=== PATIENT | female | born 1935 | race Caucasian/White ===

== ENCOUNTER → 2016-10-03 | Day surgery (SDC) | payer OTHER, MEDICARE ==
[~2016-10-03] MED LIST: ASPIRIN EC 325 MG TAB PO ONE; ATROPINE SULFATE 1 MG/10 ML SYR ONE; DIAZEPAM 5 MG TAB ONE; DIAZEPAM 5 MG TAB PO ONE; FAMOTIDINE 20 MG TAB PO ONE; FAMOTIDINE 20 MG/NACL 50 ML IV ONE; FAMOTIDINE 20 MG/NACL/50 ML BAG IV ONE; HEPARIN 10,000 UNIT/10 ML MDV ONE; IOPAMIDOL (ISOVUE 370) 100 ML BTL IV ONE; LIDOCAINE 1% 30 ML SDV ONE; MIDAZOLAM 2 MG/2 ML VIAL ONE; NS 1,000 ML IV ONE; VERAPAMIL 5 MG/2 ML VIAL ONE; diphenhydrAMINE 25 MG CAP PO ONE; fentaNYL 100 MCG/2 ML INJ ONE; methylPREDNISolone SOD SUCC 125 MG/2 ML VIAL IVP ONE; methylPREDNISolone SOD SUCC 125 MG/2 ML VIAL ONE
--- NOTE | 2016-10-03 11:41 | CPEKG ---
Heart Rate: 73 RR Interval: 822 P-R Interval: 200 QRSD Interval: 78 QT Interval: 428 QTC Interval: 472 QRS [place]: 30 T Wave [place]: 61 EKG Severity - ABNORMAL ECG - EKG Impression: ATRIAL-PACED RHYTHM Electronically Signed By: Ceasar Finley 03-Oct-2016 12:17:38
[2016-10-03 12:06] LABS: % IMMATURE GRANULYOCYTES 0.3 % (0.0-1.1); ABSOLUTE IMMATURE GRANULOCYTES 0.03 10^3/uL (0.00-0.10); ADD DIFF? NO; ADD MORPH? NO; ADD SCAN? NO; ATYPICAL LYMPHOCYTE FLAG 10 (0-99); FRAGMENT RBC FLAG 0 (0-99); HEMATOCRIT 40.8 % (38.0-47.0); HEMOGLOBIN 14.4 g/dL (12.6-16.3); LEFT SHIFT FLG 0 (0-99); LIPEMIA HEMOLYSIS FLAG 90 (0-99); MEAN CELL HEMOGLOBIN 31.7 pg (27.9-34.1); MEAN CELL HEMOGLOBIN CONCENTR. 35.3 g/dL (32.4-36.7); MEAN CELL VOLUME 89.9 fL (81.5-99.8); MEAN PLATELET VOLUME 9.4 fL (8.7-11.7); PLATELET CLUMPS FLAG 10 (0-99); PLATELET COUNT 265 10^3/uL (150-400); RED BLOOD CELL COUNT 4.54 10^6/uL (4.18-5.33); RED CELL DISTRIBUTION WIDTH 13.8 % (11.5-15.2)
[2016-10-03 12:16] LABS: PROTIME(PATIENT) 13.1 SEC (12.0-15.0)
[2016-10-03 12:55] LABS: ANION GAP 12 mEq/L (8-16); CALCIUM 9.6 mg/dL (8.5-10.4); CARBON DIOXIDE 23 mEq/l (22-31); CHLORIDE 108 mEq/L (97-110); CHOLESTEROL 168 mg/dL (140-220); CHOLESTEROL/HDL RATIO 2.51 RATIO (1.00-4.44); CREATININE 0.8 mg/dL (0.6-1.0); GLOMERULAR FILTRATION RATE > 60; GLUCOSE 91 mg/dL (70-100); HIGH DENSITY LIPOPROTEIN 67 mg/dL (40-85); LDL/HDL RATIO 1.18 RATIO (1.00-3.22); LOW DENSITY LIPOPROTEIN 79 mg/dL (80-100); NON-HIGH DENSITY LIPOPROTEIN 101 mg/dL (90-129); POTASSIUM 4.4 mEq/L (3.5-5.2); SODIUM 143 mEq/L (134-144); TRIGLYCERIDE 113 mg/dL (35-135); VERY LOW DENSITY LIPOPROTEINS 22 mg/dL (8-25)
--- NOTE | 2016-10-03 14:54 | CPIP ---
[f rep st] INVASIVE CARDIAC PROCEDURE DATE OF PROCEDURE: 10/03/2016 PROCEDURE: 1. Coronary angiography. 2. Left ventriculography. INDICATION: 1. Exertional chest pain concerning for angina. 2. Normal nuclear stress test. ACCESS: The patient was prepped and draped in the sterile fashion. 1% lidocaine was used to anesth etize the right inguinal region. A 6-Russian introducer sheath was placed selectively into the right common femoral artery via modified Seldinger technique. CORONARY ANGIOGRAPHY: A 6-Russian JL4 was advanced to the left main coronary artery and images obtai [place]. The left main coronary artery bifurcated into an LAD and circumflex coronary arteries. The le ft main coronary artery appeared normal. The left anterior descending coronary artery gave rise to 1 prominent diagonal branch. The left anterior descending coronary artery had a segmental 40% steno sis in the midvessel. The diagonal branch was free of any significant disease. Circumflex coronary artery was a large vessel and was nondominant. Circumflex coronary artery appeared normal. A 6-Fr ench JR4 was advanced to the right coronary artery, and images obtained. The right coronary artery was dominant. The right coronary artery appeared normal. LEFT VENTRICULOGRAPHY: A 6-Russian pigtail catheter was advanced in the left ventricle and images ob tained. Left ventricle was normal in size and had normal systolic function. The estimated ejection fraction was 65%. The left ventricular end-diastolic pressure was 16 mmHg. COMPLICATIONS: None. CONCLUSIONS: 1. [id number] coronary artery disease without flow limitation. 2. Normal left ventricular size and systolic function. 3. Plan is for medical management. /[id number]/MODL
== END | disposition home or self-care (01) ==
LOC: FCATH 11:08
PROVIDERS: ATTEND Internal Medicine Cardiovascular Disease
PROC: 4A023N7 Measurement of Cardiac Sampling and Pressure, Left Heart, Percutaneous Approach (ICD-10-PCS; principal; 2016-10-03)
PROC: B2151ZZ Fluoroscopy of Left Heart using Low Osmolar Contrast (ICD-10-PCS; 2016-10-03)
PROC: B2111ZZ Fluoroscopy of Multiple Coronary Arteries using Low Osmolar Contrast (ICD-10-PCS; 2016-10-03)
DX: R07.9 Chest pain, unspecified (principal); I25.10 Atherosclerotic heart disease of native coronary artery without angina pectoris; E78.5 Hyperlipidemia, unspecified; E03.9 Hypothyroidism, unspecified; I10 Essential (primary) hypertension; G47.33 Obstructive sleep apnea (adult) (pediatric); M54.5 Low back pain; I49.5 Sick sinus syndrome; Z95.0 Presence of cardiac pacemaker; Z86.14 Personal history of Methicillin resistant Staphylococcus aureus infection
CPT/HCPCS: J0461; J1200; J1644; J2250; J3010; Q9967

== ENCOUNTER 2016-11-13 14:44 | Inpatient (IN) | payer OTHER, MEDICARE ==
[2016-11-13] MEDS ORDERED: NS 1,000 ML IV ONE (15:35)
[2016-11-13 15:39] LABS: % IMMATURE GRANULYOCYTES 0.5 % (0.0-1.1); ABSOLUTE IMMATURE GRANULOCYTES 0.11 10^3/uL (0.00-0.10); ADD DIFF? NO; ADD MORPH? NO; ADD SCAN? NO; ATYPICAL LYMPHOCYTE FLAG 0 (0-99); FRAGMENT RBC FLAG 0 (0-99); HEMATOCRIT 34.8 % (38.0-47.0); HEMOGLOBIN 12.2 g/dL (12.6-16.3); LEFT SHIFT FLG 0 (0-99); LIPEMIA HEMOLYSIS FLAG 90 (0-99); MEAN CELL HEMOGLOBIN 31.4 pg (27.9-34.1); MEAN CELL HEMOGLOBIN CONCENTR. 35.1 g/dL (32.4-36.7); MEAN CELL VOLUME 89.5 fL (81.5-99.8); MEAN PLATELET VOLUME 9.6 fL (8.7-11.7); PLATELET CLUMPS FLAG 10 (0-99); PLATELET COUNT 268 10^3/uL (150-400); RED BLOOD CELL COUNT 3.89 10^6/uL (4.18-5.33); RED CELL DISTRIBUTION WIDTH 13.9 % (11.5-15.2)
[2016-11-13] MEDS ORDERED: IOPAMIDOL (ISOVUE-300) 100 ML BTL IV ONE (15:55)
[2016-11-13 16:00] LABS: ALANINE AMINOTRANSFERASE 25 IU/L (9-52); ALBUMIN 3.4 g/dL (3.5-5.0); ALKALINE PHOSPHATASE 65 IU/L (38-126); ANION GAP 13 mEq/L (8-16); ASPARTATE AMINOTRANSFERASE 18 IU/L (14-46); BILIRUBIN,TOTAL 1.6 mg/dL (0.1-1.4); CALCIUM 8.9 mg/dL (8.5-10.4); CARBON DIOXIDE 21 mEq/l (22-31); CHLORIDE 104 mEq/L (97-110); CREATININE 0.7 mg/dL (0.6-1.0); GLOMERULAR FILTRATION RATE > 60; GLUCOSE 108 mg/dL (70-100); SODIUM 138 mEq/L (134-144)
[2016-11-13 16:29] LABS: COLOR YELLOW; LEUKOCYTE ESTERASE,URINE NEGATIVE (NEGATIVE); NITRITE,URINE NEGATIVE (NEGATIVE)
[2016-11-13 16:47] LABS: BACTERIA TRACE /hpf (NONE SEEN); MUCUS 1+ /lpf (NONE-1+); WBC,URINE NONE SEEN /hpf (0-3)
--- NOTE | 2016-11-13 17:22 | UCPHY ---
H & P Patient Type: Established Chief Complaint Nursing Narrative: Right lower abd pain since yesterday . Decreased appetite. Hurts in RLQ with walking and palpation. Last po solid 5pm . Instructed to remain NPO Time Seen by Provider: 11/13/16 15:20 HPI/ROS: This patient complains of abdominal pain. She reports that yesterday she [place] and while turning to the right she fell, striking her helmeted head and summer salting landing on her back. She reported mild headache but she was not days and had no LOC. However, within 0.5 hour so the fall she started developing some abdominal discomfort in the lower belly and had a few loose stools. She was able to ski the rest the way down the mountain. She developed mild bloating and discomfort that has increased today to now 7/10 pain in the right lower quadrant. The pain worsens with movement. No other exacerbating or alleviating factors. She has not had this pain before she describes ache at baseline sharper with movements. She has decreased appetite today but no nausea or vomiting. ROS: No fevers. No significant fatigue. HEENT: No facial injuries. Musculoskeletal: She denies any extremity injuries. No midline neck or back pain. Neuro: No confusion. No numbness tingling or focal weakness. Pulmonary: No shortness of breath cardiovascular: No heart palpitations or lightheadedness. GI: As per HPI. She has not noticed any dark tarry stools or bloody stools. : No hematuria. 10 point ROS is otherwise negative. Source: Patient Exam Limitations: No limitations - Personal History Current Tetanus Diphtheria and Acellular Pertussis (TDAP): Yes Tetanus Vaccine Date: 2010 - Medical/Surgical History PMH: Hypothyroid Hypercholesterolemia Pacemaker Knee replacement Hx Asthma: No Hx Chronic Respiratory Disease: No Hx Diabetes: No Hx Cardiac Disease: No Hx Renal Disease: No Hx Cirrhosis: No Hx Alcoholism: No Hx HIV/AIDS: No Hx Splenectomy or Spleen Trauma: No Other PMH: HTN, hypothyroid, pacemaker. Hysterectomy, knee replacement, MRSA - Family History Significant Family History: No pertinent family hx - Social History Smoking Status: Never smoked Alcohol Use: None Drug Use: None Additional Social History: She is accompanied by her - Physical Exam Exam: Vital signs are normal General Appearance: Alert, no distress. She appears younger than her stated age. Eyes: Pupils equal and round no pallor or injection. ENT, Mouth: Mucous membranes moist. Neck: No midline tenderness. Back: No midline tenderness. No CVA tenderness Respiratory: There are no retractions, lungs are clear to auscultation. Cardiovascular: Regular rate and rhythm. Gastrointestinal: Hypoactive bowel sounds, soft, moderate right lower quadrant tenderness with borderline rebound. Positive Rovsing's no upper belly tenderness. No organomegaly. Neurological: GCS 15. No sensory motor deficits. No pronator drift. Cerebellar exam is intact is noted by symmetric rapid hand movements bilaterally. Skin: Warm and dry, no rashes. Extremities are symmetrical, full range of motion. Psychiatric: Mood and affect are normal DIFFERENTIAL DIAGNOSIS: After history and physical exam differential diagnosis was considered for bowel injury, mesenteric injury, appendicitis: Incidental with fall, doubt solid organ injury, minor head injury Constitutional: Initial Vital Signs Temperature (C) 36.4 C 11/13/16 15:05 Heart Rate 73 11/13/16 15:05 Respiratory Rate 16 11/13/16 15:05 Blood Pressure 114/63 11/13/16 15:05 O2 Sat (%) 96 11/13/16 15:05 O2 Delivery Mode Room Air Allergies/Adverse Reactions: RODGER Inhibitors Allergy (Verified 11/13/16 15:18) amoxicillin [Amoxicillin] Allergy (Verified 11/13/16 15:18) iodine Allergy (Verified 11/13/16 15:18) Home Medications: Medication Instructions Recorded Levothyroxine [Synthroid 75 mcg 03/03/14 (*)] Simvastatin [Zocor 10 mg] 03/03/14 Benicar 06/03/16 CeleBREX 11/13/16 Medical Decision Making - Diagnostics Imaging: CT abdomen pelvis with IV contrast: Swelling circumferentially to the ascending colon per Dr. Terrazas with mild amount of free fluid kidneys appear normal no solid organ injury. ED Course/Re-evaluation: 1 L normal saline bolus Patient declined analgesics while here. Review of her labs reveals marked leukocytosis, mild anemia, microscopic hematuria Given initial results question bowel injury. Despite minor trauma-no clinical evidence to suggest significant head injury, neck or back injury or other concerning findings on exam. Ertapenem 1 g IV Upon receiving the CT reading placed patient on a monitor I counseled regarding the need for transfer. I spoke with Dr. Michael Gauthier-general surgeon/trauma surgeon on-call. We will transfer the patient to [facility] Emergency Department for further evaluation Spoke with Dr. Yao Randolph-emergency physician at [facility] accepts patient for transfer At the time of transfer the patient's vital signs remained stable and she continues to decline analgesics. - Data Points Laboratory Results: Laboratory Results 11/13/16 15:30 11/13/16 15:30 11/13/16 11/13/16 11/13/16 16:20 15:30 15:30 WBC 21.64 10^3/uL H 10^3/uL (3.80-9.50) RBC 3.89 10^6/uL L 10^6/uL (4.18-5.33) Hgb 12.2 g/dL L g/dL (12.6-16.3) Hct 34.8 % L % (38.0-47.0) MCV 89.5 fL fL (81.5-99.8) MCH 31.4 pg pg (27.9-34.1) MCHC 35.1 g/dL g/dL (32.4-36.7) RDW 13.9 % % (11.5-15.2) Plt Count 268 10^3/uL 10^3/uL (150-400) MPV 9.6 fL fL (8.7-11.7) Neut % (Auto) 81.4 % H % (39.3-74.2) Lymph % (Auto) 10.1 % L % (15.0-45.0) [place] % (Auto) 7.6 % % (4.5-13.0) Eos % (Auto) 0.2 % L % (0.6-7.6) Baso % (Auto) 0.2 % L % (0.3-1.7) Nucleat RBC Rel Count 0.0 % % (0.0-0.2) Absolute Neuts (auto) 17.62 10^3/uL H 10^3/uL (1.70-6.50) Absolute Lymphs (auto) 2.18 10^3/uL 10^3/uL (1.00-3.00) Absolute Monos (auto) 1.64 10^3/uL H 10^3/uL (0.30-0.80) Absolute Eos (auto) 0.05 10^3/uL 10^3/uL (0.03-0.40) Absolute Basos (auto) 0.04 10^3/uL 10^3/uL (0.02-0.10) Absolute Nucleated RBC 0.00 10^3/uL 10^3/uL (0-0.01) Immature Gran % 0.5 % % (0.0-1.1) Immature Gran # 0.11 10^3/uL H 10^3/uL (0.00-0.10) Sodium 138 mEq/L mEq/L (134-144) Potassium 4.0 mEq/L mEq/L (3.5-5.2) Chloride 104 mEq/L mEq/L (97-110) Carbon Dioxide 21 mEq/l L mEq/l (22-31) Anion Gap 13 mEq/L mEq/L (8-16) BUN 12 mg/dL mg/dL (7-23) Creatinine 0.7 mg/dL mg/dL (0.6-1.0) Estimated GFR > 60 Glucose 108 mg/dL H mg/dL (70-100) Calcium 8.9 mg/dL mg/dL (8.5-10.4) Total Bilirubin 1.6 mg/dL H mg/dL (0.1-1.4) AST 18 IU/L IU/L (14-46) ALT 25 IU/L IU/L (9-52) Alkaline Phosphatase 65 IU/L IU/L (38-126) Total Protein 6.0 g/dL L g/dL (6.3-8.2) Albumin 3.4 g/dL L g/dL (3.5-5.0) Urine Color YELLOW Urine Appearance CLEAR Urine pH 7.0 (5.0-7.5) Ur Specific [place] 1.010 (1.002-1.030) Urine Protein NEGATIVE (NEGATIVE) Urine Ketones NEGATIVE (NEGATIVE) Urine Blood 1+ H (NEGATIVE) Urine Nitrate NEGATIVE (NEGATIVE) Urine Bilirubin NEGATIVE (NEGATIVE) Urine Urobilinogen 0.2 EU EU (0.2-1.0) Ur Leukocyte Esterase NEGATIVE (NEGATIVE) Urine RBC 3-5 /hpf H /hpf (0-3) Urine WBC NONE SEEN /hpf /hpf (0-3) Ur Epithelial Cells 1+ /lpf /lpf (NONE-1+) Urine Bacteria TRACE /hpf H /hpf (NONE SEEN) Hyaline Casts 1-3 /lpf H /lpf (0-1) Urine Mucus 1+ /lpf /lpf (NONE-1+) Urine Glucose NEGATIVE (NEGATIVE) Medications Given: Discontinued Medications Sodium Chloride (Ns) 1,000 mls @ 0 mls/hr IV ONCE ONE PRN Reason: Wide Open Stop: 11/13/16 15:36 Last Admin: 11/13/16 15:41 Dose: 1,000 mls Departure - Departure Disposition: [facility] ER Clinical Impression: History of blunt trauma to abdomen Condition: Fair Referrals: Gunjan Cruz MD [Primary Care Provider] - As per Instructions - PQRS PQRS Measurement: 134: Depression screening and followup, PRIME MD-PHQ2 (12 years and older) Over the last 2 weeks, how often have you been bothered by any of the following problems? 1. Feeling down, depressed, or hopeless? 2. Little interest or pleasure in doing things? Patient answered no to both 1 and 2 130: Documentation of medications. Reviewed all patient medications, doses, route and frequency. 226: Do you smoke? [No.] 47: 65 and older: Advanced care planning. Patient designates surrogate decision maker as spouse 51: 18 years old and older with diagnosis of COPD, spirometry performance. NA 52: 18 years old and older with COPD and symptoms of COPD or FEV1<60% predicted prescribed a B Agonist. NA
[2016-11-13] MEDS ORDERED: ERTAPENEM 1 GM in NS 100 ML IV ONE (17:28)
[2016-11-13] MEDS ORDERED: D5W NS 1,000 ML IV ONE (17:29)
[2016-11-13] MEDS ORDERED: NS 100 ML BAG IV ONE (17:43)
[2016-11-13 18:00] LABS: INR 1.01 (0.83-1.16)
[2016-11-13 18:01] LABS: APTT 31.3 SEC (23.0-38.0)
--- NOTE | 2016-11-13 18:49 | EDPHY ---
H & P Time Seen by Provider: 11/13/16 15:20 HPI/ROS: CHIEF COMPLAINT: Right lower abdominal pain HISTORY OF PRESENT ILLNESS: Patient was skiing yesterday at [employer] and took a significant fall. However she landed on her back and did not hit her abdomen. She got up from the fall and felt that she got the wind knocked out of her but she [place] and then went to the bathroom and had a significant bout of diarrhea. She subsequently had some abdominal bloating and feeling that she needed to have diarrhea again but did not ski anymore and left the hill. Today she had continued right lower abdominal pain and went at the urgent care where a CT scan showed a thickened right-sided: Within normal appendix. She received 1 g IV Invanz and was transferred here for surgical consultation. REVIEW OF SYSTEMS: Eye: no change in vision ENT: no sore throat Cardiac: no chest pain or syncope Pulmonary: no cough or SOB Abdomen: HPI, no diarrhea. Musculoskeletal: no back pain or neck pain Skin: no rash Neuro: no headache Constitutional: no fever : no urinary symptoms A comprehensive 10 point review of systems is otherwise negative aside from elements mentioned in the history of present illness. PAST MEDICAL HISTORY: Includes hypertension, hypothyroid, pacemaker, knee replacement. Social history: Added year, nonsmoker General Appearance: Alert and conversant, cooperative. Eyes: No scleral icterus. ENT, Mouth: Normal mucous membranes. Respiratory: Normal respiratory effort, breath sounds equal, lungs are clear to auscultation. Cardiovascular: Regular rate and rhythm. Gastrointestinal: Right lower quadrant tenderness. Neurological: Alert and oriented x3. Normally conversant. Face symmetric, normal movement and sensation in all extremities. Skin: Warm and dry, no rashes. Musculoskeletal: No spinal tenderness. Psychiatric: Not agitated. Emergency Department course/MDM: Although traumatic injury can' t be excluded, the patient does not have abdominal wall contusion or hemorrhage visible on her skin or externally. I think this sequence of events is also quite possible or likely to be infectious colitis. Discussed with Dr. Gauthier on the patient's arrival. However the patient tells me she has Dr. Gunjan Cruz from [facility] as her primary care provider. Discussed with Dr. Walsh who requests that Dr. Gauthier provide care for the patient. 1943: Discussed with Dr. Maldonado and with Dr. Gauthier. Hospitalist will consult. Admission for IV fluids, IV antibiotics, surgical consultation. Smoking Status: Never smoked Constitutional: Initial Vital Signs Temperature (C) 36.4 C 11/13/16 15:05 Heart Rate 73 11/13/16 15:05 Respiratory Rate 16 11/13/16 15:05 Blood Pressure 114/63 11/13/16 15:05 O2 Sat (%) 96 11/13/16 15:05 O2 Delivery Mode Room Air Allergies/Adverse Reactions: RODGER Inhibitors Allergy (Verified 11/13/16 15:18) amoxicillin [Amoxicillin] Allergy (Verified 11/13/16 15:18) iodine Allergy (Verified 11/13/16 15:18) Home Medications: Medication Instructions Recorded Levothyroxine [Synthroid 75 mcg 75 mcg PO DAILY 03/03/14 (*)] Olmesartan Medoxomil [Benicar 20 40 mg PO DAILY@12 06/03/16 mg (*)] DULoxetine [Cymbalta 20 MG (RX)] 20 mg PO BID 11/13/16 Latanoprost 0.005% [Xalatan 0.005% 1 drops EACHEYE HS 11/13/16 (*)] Simvastatin [Zocor] 20 mg PO DAILY 11/13/16 Medical Decision Making - Diagnostics EKG Interpretation: 12-lead EKG interpreted by me; official reading is in trace master. My interpretation is atrial paced rhythm at 74. Differential Diagnosis: Differential considered including but not limited to appendicitis, colitis, traumatic abdominal wall injury, colon perforation Consult/Admit Bed Type: [place] [id number] requested [facility] for pt. - Data Points Laboratory Results: Laboratory Results 11/13/16 15:30 11/13/16 15:30 11/13/16 11/13/16 11/13/16 16:20 15:30 15:30 WBC RBC Hgb Hct MCV MCH MCHC RDW Plt Count MPV Neut % (Auto) Lymph % (Auto) [place] % (Auto) Eos % (Auto) Baso % (Auto) Nucleat RBC Rel Count Absolute Neuts (auto) Absolute Lymphs (auto) Absolute Monos (auto) Absolute Eos (auto) Absolute Basos (auto) Absolute Nucleated RBC Immature Gran % Immature Gran # PT 13.0 SEC SEC (12.0-15.0) INR 1.01 (0.83-1.16) APTT 31.3 SEC SEC (23.0-38.0) Sodium 138 mEq/L mEq/L (134-144) Potassium 4.0 mEq/L mEq/L (3.5-5.2) Chloride 104 mEq/L mEq/L (97-110) Carbon Dioxide 21 mEq/l L mEq/l (22-31) Anion Gap 13 mEq/L mEq/L (8-16) BUN 12 mg/dL mg/dL (7-23) Creatinine 0.7 mg/dL mg/dL (0.6-1.0) Estimated GFR > 60 Glucose 108 mg/dL H mg/dL (70-100) Calcium 8.9 mg/dL mg/dL (8.5-10.4) Total Bilirubin 1.6 mg/dL H mg/dL (0.1-1.4) AST 18 IU/L IU/L (14-46) ALT 25 IU/L IU/L (9-52) Alkaline Phosphatase 65 IU/L IU/L (38-126) Total Protein 6.0 g/dL L g/dL (6.3-8.2) Albumin 3.4 g/dL L g/dL (3.5-5.0) Urine Color YELLOW Urine Appearance CLEAR Urine pH 7.0 (5.0-7.5) Ur Specific [place] 1.010 (1.002-1.030) Urine Protein NEGATIVE (NEGATIVE) Urine Ketones NEGATIVE (NEGATIVE) Urine Blood 1+ H (NEGATIVE) Urine Nitrate NEGATIVE (NEGATIVE) Urine Bilirubin NEGATIVE (NEGATIVE) Urine Urobilinogen 0.2 EU EU (0.2-1.0) Ur Leukocyte Esterase NEGATIVE (NEGATIVE) Urine RBC 3-5 /hpf H /hpf (0-3) Urine WBC NONE SEEN /hpf /hpf (0-3) Ur Epithelial Cells 1+ /lpf /lpf (NONE-1+) Urine Bacteria TRACE /hpf H /hpf (NONE SEEN) Hyaline Casts 1-3 /lpf H /lpf (0-1) Urine Mucus 1+ /lpf /lpf (NONE-1+) Urine Glucose NEGATIVE (NEGATIVE) 11/13/16 15:30 WBC 21.64 10^3/uL H 10^3/uL (3.80-9.50) RBC 3.89 10^6/uL L 10^6/uL (4.18-5.33) Hgb 12.2 g/dL L g/dL (12.6-16.3) Hct 34.8 % L % (38.0-47.0) MCV 89.5 fL fL (81.5-99.8) MCH 31.4 pg pg (27.9-34.1) MCHC 35.1 g/dL g/dL (32.4-36.7) RDW 13.9 % % (11.5-15.2) Plt Count 268 10^3/uL 10^3/uL (150-400) MPV 9.6 fL fL (8.7-11.7) Neut % (Auto) 81.4 % H % (39.3-74.2) Lymph % (Auto) 10.1 % L % (15.0-45.0) [place] % (Auto) 7.6 % % (4.5-13.0) Eos % (Auto) 0.2 % L % (0.6-7.6) Baso % (Auto) 0.2 % L % (0.3-1.7) Nucleat RBC Rel Count 0.0 % % (0.0-0.2) Absolute Neuts (auto) 17.62 10^3/uL H 10^3/uL (1.70-6.50) Absolute Lymphs (auto) 2.18 10^3/uL 10^3/uL (1.00-3.00) Absolute Monos (auto) 1.64 10^3/uL H 10^3/uL (0.30-0.80) Absolute Eos (auto) 0.05 10^3/uL 10^3/uL (0.03-0.40) Absolute Basos (auto) 0.04 10^3/uL 10^3/uL (0.02-0.10) Absolute Nucleated RBC 0.00 10^3/uL 10^3/uL (0-0.01) Immature Gran % 0.5 % % (0.0-1.1) Immature Gran # 0.11 10^3/uL H 10^3/uL (0.00-0.10) PT INR APTT Sodium Potassium Chloride Carbon Dioxide Anion Gap BUN Creatinine Estimated GFR Glucose Calcium Total Bilirubin AST ALT Alkaline Phosphatase Total Protein Albumin Urine Color Urine Appearance Urine pH Ur Specific Vivian Urine Protein Urine Ketones Urine Blood Urine Nitrate Urine Bilirubin Urine Urobilinogen Ur Leukocyte Esterase Urine RBC Urine WBC Ur Epithelial Cells Urine Bacteria Hyaline Casts Urine Mucus Urine Glucose Medications Given: Discontinued Medications Sodium Chloride (Ns) 1,000 mls @ 0 mls/hr IV ONCE ONE PRN Reason: Wide Open Stop: 11/13/16 15:36 Last Admin: 11/13/16 15:41 Dose: 1,000 mls Ertapenem 1 gm/ Sodium (Chloride) 100 mls @ 200 mls/hr IV EDNOW ONE PRN Reason: Protocol Stop: 11/13/16 17:57 Last Admin: 11/13/16 17:52 Dose: 100 mls Departure - Departure Disposition: [facility] Inpatient Acute Clinical Impression: Colitis Condition: Fair
--- NOTE | 2016-11-13 19:45 | CPEKG ---
Heart Rate: 74 RR Interval: 811 P-R Interval: 200 QRSD Interval: 80 QT Interval: 412 QTC Interval: 457 QRS [place]: 17 T Wave [place]: 45 EKG Severity - ABNORMAL ECG - EKG Impression: ATRIAL-PACED RHYTHM Electronically Signed By: Mata Dillon 13-Nov-2016 20:04:17
[2016-11-13] MEDS ORDERED: ONDANSETRON 4 MG/2 ML VIAL IVP PRN (19:51)
--- NOTE | 2016-11-13 21:23 | GHP ---
[f rep st] HISTORY AND PHYSICAL DATE OF ADMISSION: 11/13/2016 CHIEF COMPLAINT: Right-sided abdominal pain. HISTORY: The patient is a 81-year-old female who was skiing yesterday at [employer] She took a fall, although landed flat on her back, hitting her head. Her only initial complaint was headach e. She got up and skied down the mountain; however, snf down the mountain, she developed abdomi nal pain and abdominal cramping and had to stop at a restroom and had some diarrhea. Upon arriving back down all the way to the bottom, she had diarrhea again. She noticed abdominal bloating, and sh e appeared very weak and faint, according to her . For the last 2 days, she has continued to have 7/10 right lower quadrant abdominal pain which has persisted. She has had minimal p.o. intake . The diarrhea has slowed down, although now she just feels an urgency to go to the restroom withou t actually producing any stool. There has never been any blood in her stool. There has been no rosie sea or vomiting. No fever. She was initially seen at urgent care with concern for traumatic intramural hemorrhage into the colo n as result of her ski accident, so she was planned to admit to Trauma Surgery. Upon arrival to [facility] Emergency Room, she was seen by Dr. Dillon, who took the history yet again. He felt it was mo re consistent with a medical colitis and the fall was just incidental, and therefore asked me to see the patient. PAST MEDICAL HISTORY: 1. Hypertension. 2. Hypothyroidism. 3. Pacemaker due to sick sinus syndrome. 4. Hyperlipidemia. PAST SURGICAL HISTORY: Hysterectomy, total knee arthroplasty. MEDICATIONS: Please see computer record for full detailed list. ALLERGIES: Iodine, RODGER inhibitor, amoxicillin. SOCIAL HISTORY: Smoking. Social alcohol. Lives with her . REVIEW OF SYSTEMS: Complete review of systems obtained. Review of systems is negative regarding HE ENT, GI, pulmonary, cardiovascular, , hematologic, skin, musculoskeletal, endocrine, psych, except for positives and negatives as under HPI. FAMILY HISTORY: Reviewed, noncontributory to presenting complaint. PHYSICAL EXAMINATION: GENERAL: Well-developed, well-nourished female in no acute distress. VITAL SIGNS: Temperature 36.0, pulse 73, blood pressure 143/88, saturating 99% on room air. HEENT: Norm al conjunctivae. Pupils equal and react to light. ENT, normal ears and nose. Hearing intact. Nor mal lips and teeth. Oropharynx moist. NECK: Trachea midline. No thyromegaly. CHEST: Normal res piratory effort. LUNGS: Clear to auscultation bilaterally. CARDIOVASCULAR: Regular rate and rhyt hm. No murmur. No lower extremity edema. ABDOMEN: Soft, mildly distended. Positive tenderness o n the right side to deep palpation. No rebound or guarding. SKIN: Warm, dry, intact. No rash. M USCULOSKELETAL: No cyanosis or clubbing. Strength 5/5 upper and lower extremities. NEUROLOGIC: C ranial nerves intact. Normal sensation to light touch. PSYCHIATRIC: Alert and oriented x3. Tarsha l mood and affect. Normal judgment and insight. Normal memory. LABORATORY DATA: White count 21.64, hematocrit 34.8, platelets 268. Sodium 138, potassium 4.0, chl oride 104, bicarb 21, BUN 12, creatinine 0.7, glucose 108, total bilirubin 1.6. Urinalysis is negat ivette. INR is 1.01. DISCUSSION: The case was discussed with Dr. Mata Dillon, emergency room provider. As discussed above , he felt this was more consistent with a medical condition, colitis, rather than trauma. EKG revie wed by me. My personal interpretation is normal sinus rhythm, no ST or T-wave changes. CT scan of the abdomen and pelvis shows a cecal and ascending colon, intramural hemorrhage versus colitis. ASSESSMENT/PLAN: 1. Right-sided abdominal pain due to traumatic intramural colonic hemorrhage versus colitis. Dr. Joyce fermin will also be seeing the patient and perhaps, with his review of the CT scan, bring some cla rity. Will check a stool for GI PCR. Will follow H and H's and lactates and otherwise treat her tomlin pportively. 2. Leukocytosis. This may be more consistent with a colitis; however, I wonder if trauma could cau se a breakdown of normal barrier to enterocolonic amanda. She did receive a dose of IV Invanz at [facility] care. I do not see a medical indication for continuing antibiotics; however, Surgery may consid er continuing them, depending on results of their evaluation. 3. Sick sinus syndrome with pacemaker. This is stable. CODE STATUS: Full. ADMISSION STATUS: 1. Will admit to observation. Depending on clinical course will determine length of inpatient mark tment needed. 2. DVT prophylaxis. Given the question of intramural hemorrhage, will hold off on pharmacologic pr ophylaxis at this time and order SCDs. /[id number]/MODL
[2016-11-13] MEDS: NS 1,000 ML IV SCH (21:50)
[2016-11-13] MEDS: HYDROmorphONE/DILAUDID 1 MG/ML SYR IVP PRN (22:00)
[2016-11-13] MEDS: DULoxetine 20 MG CAP PO SCH (22:00)
[2016-11-13 22:32] LABS: HEMATOCRIT 31.2 % (38.0-47.0)
[2016-11-13] MEDS: LATANOPROST 0.005% 2.5 ML OPHT DROPS EACHEYE SCH (22:54)
--- NOTE | 2016-11-14 00:35 | GCON ---
[f rep st] CONSULTATION REASON FOR CONSULTATION: Asked to see the patient in regard to abnormal CT findings. HISTORY OF PRESENT ILLNESS: This 81-year-old female was skiing yesterday at [employer], had a fall landing on her back. She got up and continued to ski, developed some abdominal pain, and had t wo episodes of diarrhea. She came to the urgent care center today for persistent pain, and a white blood count was 21,000, and a CT scan done of her abdomen showing thickening of the wall of the colo n on the right. There are no real inflammatory changes around the colon. No signs of abdominal wal l trauma in the fatty tissues on the anterior abdominal wall. The patient states that she fell on h er back, and did not strike any objects in her abdomen. The patient states she has not been on any antibiotics, other than some Silvadene cream for her foot . She denies any loose stools prior to the fall. PHYSICAL EXAMINATION: GENERAL APPEARANCE: Pleasant, awake, alert female in minimal distress. Afeb rile. ABDOMEN: Soft, although tender in the right lower quadrant. Appendicitis is very unlikely, given the CT scan shows a completely normal appendix. I have reviewed the CT scans with another radiologist, who feels that the original description of po ssible submucosal hemorrhage seems much less likely than a simple infectious colitis. ASSESSMENT: Given the mechanism and the patient's overall presentation, with leukocytosis and colon thickening, and diarrhea, I suspect this is infectious colitis. I think it is very unlikely this i s related to trauma. I certainly seen C. difficile colitis present this way. The patient has a rear diverticu lum in the area of the cecum, but diverticulitis itself seems much less likely, given the overall ap pearance. I would strongly consider empirically covering her for C. difficile while awaiting for st ool samples, cultures, etc. I know the patient got a dose of ertapenem in urgent care, although thi s would be unlikely to help if she does have C. difficile colitis. /[id number]/MODL
[2016-11-14] MEDS: ACETAMINOPHEN 325 MG TAB PO PRN (02:04)
[2016-11-14 04:47] LABS: % IMMATURE GRANULYOCYTES 0.4 % (0.0-1.1); ABSOLUTE IMMATURE GRANULOCYTES 0.07 10^3/uL (0.00-0.10); ADD DIFF? NO; ADD MORPH? NO; ADD SCAN? NO; ATYPICAL LYMPHOCYTE FLAG 0 (0-99); FRAGMENT RBC FLAG 0 (0-99); HEMATOCRIT 32.5 % (38.0-47.0); HEMOGLOBIN 11.5 g/dL (12.6-16.3); LEFT SHIFT FLG 0 (0-99); LIPEMIA HEMOLYSIS FLAG 90 (0-99); MEAN CELL HEMOGLOBIN 32.3 pg (27.9-34.1); MEAN CELL HEMOGLOBIN CONCENTR. 35.4 g/dL (32.4-36.7); MEAN CELL VOLUME 91.3 fL (81.5-99.8); MEAN PLATELET VOLUME 9.4 fL (8.7-11.7); PLATELET CLUMPS FLAG 0 (0-99); PLATELET COUNT 209 10^3/uL (150-400); RED BLOOD CELL COUNT 3.56 10^6/uL (4.18-5.33); RED CELL DISTRIBUTION WIDTH 14.1 % (11.5-15.2)
[2016-11-14 05:15] LABS: ALANINE AMINOTRANSFERASE 25 IU/L (9-52); ALKALINE PHOSPHATASE 51 IU/L (38-126); ANION GAP 6 mEq/L (8-16); ASPARTATE AMINOTRANSFERASE 16 IU/L (14-46); BILIRUBIN,TOTAL 1.1 mg/dL (0.1-1.4); BILIRUBIN-CONJUGATED 0.4 mg/dL (0.0-0.5); BILIRUBIN-UNCONJUGATED 0.7 mg/dL (0.0-1.1); CALCIUM 8.3 mg/dL (8.5-10.4); CARBON DIOXIDE 21 mEq/l (22-31); CHLORIDE 114 mEq/L (97-110); CREATININE 0.6 mg/dL (0.6-1.0); GLOMERULAR FILTRATION RATE > 60; GLUCOSE 110 mg/dL (70-100); POTASSIUM 3.9 mEq/L (3.5-5.2); SODIUM 141 mEq/L (134-144); TOTAL PROTEIN 5.1 g/dL (6.3-8.2)
[2016-11-14] MEDS: LEVOTHYROXINE 75 MCG TAB PO SCH (05:18)
[2016-11-14] MEDS: NS 1,000 ML IV SCH ×2 (07:31→22:46)
[2016-11-14] MEDS: ATORVASTATIN CALCIUM 10 MG TAB PO SCH (08:36)
[2016-11-14] MEDS: DULoxetine 20 MG CAP PO SCH ×2 (08:37→22:42)
[2016-11-14] MEDS ORDERED: ENOXAPARIN 40 MG/0.4 ML SYR SC SCH (09:00)
--- NOTE | 2016-11-14 09:22 | HOSPPROG ---
Hospitalist Progress Note Assessment/Plan: Colitis - Possibly traumatic intramural hemorrhage as symptoms started immediately after a hard fall skiing (though fell onto her back and no bruising of abdomen or back) vs infectious or ischemic colitis. H&H stable. Appendix appeared normal on CT. Lactate normal. Surgery following. WBC's trending down after receiving IV Ertapenem in urgent care yesterday. Afebrile. No diarrhea today, C diff considered and plan for GI pathogen panel if diarrhea recurs. -check hemoccult stool -GI pathogen panel if diarrhea recurs -cont clear liquids -cont atbx for now given significant leukocytosis with neutrophilia in setting of colitis, change to levaquin plus flagyl (the latter would cover possible c diff) -consider GI consult if not improving Sick sinus syndrome, pacer present Hypertension - cont Olmesartan Hypothyroid - cont Levothyroxine. Full code DVT PPLX - Lovenox deferred due to possibility of intramural hemorrhage of colon , SCD's for now Dispo - change to inpt for ongoing management of colitis Subjective: Pt feels about the same, still with right sided abdominal pain and tenderness. No fevers. No N/V. No more diarrhea today. Tolerating clears, but decreased appetite and little po intake over past 2 days. Objective: Vital Signs Temp Pulse Resp BP Pulse Ox 36.4 C 76 16 154/85 H 95 11/14/16 08:13 11/14/16 08:13 11/14/16 08:13 11/14/16 08:13 11/14/16 08:13 Laboratory Results 11/14/16 04:38 11/14/16 04:38 11/13/16 11/14/16 11/15/16 05:59 05:59 05:59 Intake Total 1000 Balance 1000 PT 13.0 SEC (12.0-15.0) 11/13/16 15:30 INR 1.01 (0.83-1.16) 11/13/16 15:30 - Physical Exam Constitutional: no apparent distress Eyes: PERRL Ears, Nose, Mouth, Throat: moist mucous membranes Cardiovascular: regular rate and rhythym Respiratory: no respiratory distress Gastrointestinal: normoactive bowel sounds, other (soft, nd, +RLQ TTP with some voluntary guarding, no rigidity or peritoneal signs) ICD10 Worksheet Patient Problems: Problems Problem Status Onset Colitis Acute
[2016-11-14] MEDS: OLMESARTAN MEDOXOMIL 20 MG TAB PO SCH (12:08)
[2016-11-14] MEDS: HYDROmorphONE/DILAUDID 1 MG/ML SYR IVP PRN ×2 (16:37→22:43)
[2016-11-14] MEDS: LATANOPROST 0.005% 2.5 ML OPHT DROPS EACHEYE SCH (22:42)
[2016-11-15] MEDS: HYDROmorphONE/DILAUDID 1 MG/ML SYR IVP PRN (03:46)
[2016-11-15] MEDS: NS 1,000 ML IV SCH (03:48)
[2016-11-15 05:13] LABS: % IMMATURE GRANULYOCYTES 0.4 % (0.0-1.1); ABSOLUTE IMMATURE GRANULOCYTES 0.05 10^3/uL (0.00-0.10); ADD DIFF? NO; ADD MORPH? NO; ADD SCAN? NO; ATYPICAL LYMPHOCYTE FLAG 10 (0-99); FRAGMENT RBC FLAG 0 (0-99); HEMATOCRIT 32.4 % (38.0-47.0); HEMOGLOBIN 11.4 g/dL (12.6-16.3); LEFT SHIFT FLG 0 (0-99); LIPEMIA HEMOLYSIS FLAG 90 (0-99); MEAN CELL HEMOGLOBIN 32.4 pg (27.9-34.1); MEAN CELL HEMOGLOBIN CONCENTR. 35.2 g/dL (32.4-36.7); PLATELET CLUMPS FLAG 0 (0-99); PLATELET COUNT 204 10^3/uL (150-400); RED BLOOD CELL COUNT 3.52 10^6/uL (4.18-5.33); RED CELL DISTRIBUTION WIDTH 13.6 % (11.5-15.2)
[2016-11-15 05:35] LABS: ANION GAP 7 mEq/L (8-16); CALCIUM 8.6 mg/dL (8.5-10.4); CARBON DIOXIDE 23 mEq/l (22-31); CHLORIDE 113 mEq/L (97-110); CREATININE 0.6 mg/dL (0.6-1.0); GLOMERULAR FILTRATION RATE > 60; GLUCOSE 76 mg/dL (70-100); POTASSIUM 4.5 mEq/L (3.5-5.2); SODIUM 143 mEq/L (134-144)
[2016-11-15] MEDS: LEVOTHYROXINE 75 MCG TAB PO SCH (05:55)
--- NOTE | 2016-11-15 07:15 | SOAPPROG ---
SOAP Progress Note Assessment/Plan: Assessment:Consult dictated. DDX includes colonic trauma, infectious colitis, and ischemic colitis. IBD unlikely given normal colonoscopy 2013. Pain is improving. Patient has appetite. Abdomen soft with tenderness in RLQ. Plan:ADAT. No role for colonoscopy at this time, also perforation risk is high regardless of etiology. Would treat conservatively. When able to control symptoms with PO meds would probably be okay to discharge on oral antibiotics for a total of 10 days. 11/15/16 07:12 Objective: Vital Signs Temp Pulse Resp BP Pulse Ox 36.3 C 74 18 154/72 H 98 11/15/16 03:36 11/15/16 03:36 11/15/16 03:36 11/15/16 03:36 11/15/16 03:36 Microbiology 11/14/16 13:00 Gastrointestinal Tract Panel (PCR) - Final Stool No Organism Detected Laboratory Results 11/15/16 04:26 11/15/16 04:26 11/14/16 11/15/16 11/16/16 05:59 05:59 05:59 Intake Total 4355 Output Total 800 Balance 3555 PT 13.0 SEC (12.0-15.0) 11/13/16 15:30 INR 1.01 (0.83-1.16) 11/13/16 15:30 ICD10 Worksheet Patient Problems: Problems Problem Status Onset Colitis Acute
--- NOTE | 2016-11-15 07:53 | GCON ---
[f rep st] CONSULTATION GASTROINTESTINAL CONSULTATION IMPRESSION: 1. Ascending colitis. Differential diagnosis includes trauma, ischemia and infection, much less li cornelius would be inflammatory bowel disease given the patient has had normal colonoscopies in 2013 and prior to that, with no evidence of inflammatory bowel disease, only sigmoid diverticulosis. 2. Occult blood in stool. Probably secondary to #1. RECOMMENDATIONS: 1. Agree with antibiotic coverage for possible infection. 2. Agree with holding on surgical intervention. 3. Colonoscopy would not be safe to perform at this time nor would I suspect it would be illuminati ng. The patient is a high risk for perforation given the inflammation is in the ascending colon, wh ich is relatively thin-walled compared to the remainder of the colon and there may have been trauma in this area. 4. Advance diet as tolerated. 5. When patient tolerates pain with oral pain meds, could potentially be discharged on that plus fu ll 10 day course of Flagyl and ciprofloxacin. 6. The patient continues to deteriorate and would probably repeat CT imaging prior to making other treatment decisions. HISTORY OF PRESENT ILLNESS: The patient is a 81-year-old female, who on November 12 was skiing and the n took a fall where she landed on her back but not her abdomen. She skied a little bit further on t hat run and then developed some diarrhea and afterwards abdominal bloating. The next days had devel oped significant right lower quadrant abdominal pain. She presented to urgent care and had a CT sca n performed that suggested a post traumatic intramural hemorrhage versus an infectious process in th e cecum and the ascending colon, but no evidence of appendicitis. [place] [address]. Stool was heme-positive. The patient was admitted. Stool cultures were obtained which we re negative. The patient was started empirically on ciprofloxacin and Flagyl. Surgical consult was obtained but it was felt not to be a surgical process and may not have been traumatic based on dina ad of the CAT scan. Today patient has pain in the right lower quadrant, slightly less than yesterday. It is well contro lled with analgesics. Her white count has decreased to 11. Stool cultures are negative. The patient has never had pain like this before. She has never had diverticulitis. Patient does have appetite this morning, is requesting food. PAST MEDICAL HISTORY: Significant for hypertension, hypothyroidism, pacemaker and hyperlipidemia. MEDICATIONS: Please see medication list. ALLERGIES: To amoxicillin, RODGER inhibitors and iodine. REVIEW OF SYSTEMS: Significant for some headaches but otherwise noncontributory. PHYSICAL EXAM: GENERAL: Reveals normally developed, normally nourished female in no acute distress . She has received analgesics prior to the exam. ABDOMEN: Soft, and flat. There is tenderness in the right lower quadrant. There are no masses, rebound or guarding noted. LABORATORIES: As noted above. IMAGING: As noted above. /[id number]/MODL
[2016-11-15] MEDS ORDERED: ACETAMINOPHEN 325 MG TAB PO PRN (08:34)
[2016-11-15] MEDS: DULoxetine 20 MG CAP PO SCH (08:35)
[2016-11-15] MEDS: ATORVASTATIN CALCIUM 10 MG TAB PO SCH ×2 (08:35→11:26)
[2016-11-15] MEDS: ACETAMINOPHEN 325 MG TAB PO PRN (08:35)
--- NOTE | 2016-11-15 10:56 | SOAPPROG ---
SOAP Progress Note Assessment/Plan: Assessment: Plan: Subjective: vss, af plow and boring machine tender rlq. i doubt this ws traumatic. wbc lower- hopefully will resolve despite lack of actual diagnosis. Objective: Vital Signs Temp Pulse Resp BP Pulse Ox 36.5 C 77 18 120/72 96 11/15/16 07:40 11/15/16 07:40 11/15/16 07:40 11/15/16 10:12 11/15/16 07:40 Microbiology 11/14/16 13:00 Gastrointestinal Tract Panel (PCR) - Final Stool No Organism Detected Laboratory Results 11/15/16 04:26 11/15/16 04:26 11/14/16 11/15/16 11/16/16 05:59 05:59 05:59 Intake Total 4355 Output Total 800 Balance 3555 PT 13.0 SEC (12.0-15.0) 11/13/16 15:30 INR 1.01 (0.83-1.16) 11/13/16 15:30 ICD10 Worksheet Patient Problems: Problems Problem Status Onset Colitis Acute
[2016-11-15 11:32] VITALS: RESP 16
[2016-11-15] MEDS: OLMESARTAN MEDOXOMIL 20 MG TAB PO SCH (12:05)
[2016-11-15] MEDS ORDERED: PANTOPRAZOLE SODIUM 40 MG in NS 100 ML IV SCH (13:30)
[2016-11-15 15:24] VITALS: BP 117/82; PULSE 70; TEMP 97.7; O2SAT 94
--- NOTE | 2016-11-15 15:26 | HOSPPROG ---
Hospitalist Progress Note Assessment/Plan: 81-year-old female admitted with right-sided abdominal pain and found to have colitis of undetermined etiology. She seems to be improving on IV antibiotics. Patient is new to me today. - Acute right-sided colitis of undetermined etiology. CT scan shows very prominent thickening in the knee of the mucosa. Lactate is normal and white count is trending down. She was initially given IV ertapenem in the urgent care and has been placed on IV Flagyl and Levaquin. Pain and tenderness are improving today. I have discussed the matter with Dr. Jack Douglas who feels that the etiology of the colitis is unclear and she is improving on antibiotics we will continue with this course. A colonoscopy is not indicated at this time. Per Dr. Michael Gauthier, surgery, there are no surgical options. - Nausea and vomiting possibly secondary to Flagyl but may be secondary to the colitis. Start patient on a PPI medication continue IV fluids and assess results. - Hypertension: BP in good control will continue olmesartan - chronic problems of sick sinus syndrome with a pacemaker in place, hypothyroidism and will continue levothyroxine. - DVT: Lovenox has been deferred due to possible intramural hemorrhage of the colon. SCDs for now - code: Full - disposition: Home 1-2 days pending results of pain and tenderness. Subjective: Feeling much improved with less pain and less tenderness and no fever or chills. She had some nausea and vomiting which occurred post the infusion of Flagyl. This has not reoccurred. Objective: Vital Signs Temp Pulse Resp BP Pulse Ox 36.3 C 69 16 142/94 H 96 11/15/16 11:31 11/15/16 11:31 11/15/16 11:31 11/15/16 11:31 11/15/16 11:31 Microbiology 11/14/16 13:00 Gastrointestinal Tract Panel (PCR) - Final Stool No Organism Detected Laboratory Results 11/15/16 04:26 11/15/16 04:26 11/14/16 11/15/16 11/16/16 05:59 05:59 05:59 Intake Total 4355 540 Output Total 800 Balance 3555 540 PT 13.0 SEC (12.0-15.0) 11/13/16 15:30 INR 1.01 (0.83-1.16) 11/13/16 15:30 - Time Spent With Patient Time Spent with Patient: greater than 35 minutes Time Spent with Patient: Greater than 35 minutes spent on this patients care, greater than 50% of time spent counseling, educating, and coordinating care regarding the above mentioned plan. - Pending Discharge Pending Discharge Within 24 Hours: Yes Pending Discharge Date: 11/16/16 Pending Discharge Time: 11:00 - Physical Exam Constitutional: no apparent distress Eyes: PERRL, anicteric sclera Ears, Nose, Mouth, Throat: moist mucous membranes, hearing normal Cardiovascular: regular rate and rhythym, no murmur, rub, or gallop Respiratory: no respiratory distress, no rales or rhonchi, clear to auscultation Gastrointestinal: normoactive bowel sounds, other ( Tenderness in the right lower quadrant with out a palpable mass or rebound. Right upper quadrant is nontender) Genitourinary: no bladder fullness Skin: warm Musculoskeletal: full muscle strength Neurologic: AAOx3, CN II-XII Intact ICD10 Worksheet Patient Problems: Problems Problem Status Onset Colitis Acute
--- NOTE | 2016-11-15 18:05 | GDS ---
[f rep st] DISCHARGE SUMMARY ADMISSION DIAGNOSES: 1. Acute right-sided colitis, ascending colon. 2. Hypertension, good control. CHRONIC DIAGNOSES: 1. Hypothyroidism. 2. Sick sinus syndrome with a pacemaker in place. 3. Hyperlipidemia. CONSULTATIONS: Surgery, and Gastroenterology. PROCEDURES: A CT scan was performed, which showed evidence of ascending colitis, with thickening of the mucosa. HOSPITAL COURSE: A 81-year-old female who presented with right-sided abdominal pain. On CT scan wa s found to have a right-sided colitis. There was a history of a fall while skiing, although GI cons ultation indicated that they did not think the skiing incident was related at all to the colitis. T he possibility was it was ischemic or infectious, or possibly secondary to inflammation or even a ma lignancy. She was treated with IV Flagyl and Levaquin, and slowly improved. She was noted to have occult blood in the stool, although there was no major drop in her hemoglobin. Her pain improved in the 24 to 48 hours following admission. Her diet was advanced, and she was able to tolerate a norm al diet without difficulties. DISCHARGE MEDICATIONS: New medications are Tylenol 650 mg p.o. q.4 hours p.r.n. pain, [place] 5/325 m g 1-2 tablets p.o. q.4 hours p.r.n. pain, Levaquin 500 mg p.o. daily x7 days, Flagyl 500 mg p.o. twi ce daily x7 days, Zofran 4 mg q.4 hours p.r.n. nausea, #12. Her continued medications are Synthroid 75 mcg daily, Benicar 40 mg daily, Xalatan eyedrops 0.005% in each eye daily, Cymbalta 20 mg twice daily, Zocor 20 mg p.o. at bedtime. PLAN: Patient is discharged to home in the accompaniment of her . I have discussed the disc harge with Dr. Alfredo Douglas. I have also discussed the discharge and plan with the patient and her . She will follow up with Dr. Gunjan Cruz on a p.r.n. basis, but has been instructed to foll ow up with Dr. Alfredo Douglas in 1-2 weeks, following completion of her antibiotic course. Certainly if things become worse she will return to the emergency department further. Note that she had a co lonoscopy 2 years [employer], which was normal. Dr. Douglas has declined to do a colonoscopy at this time b ecause of the inflamed and friable colonic tissue. He prefers to wait and review the results of the use of antibiotics to resolve the inflammation and edema, and then do a colonoscopy. Time of this discharge required 40 minutes, greater than 50% to alcohol and drug counselor and coordinate care. /[id number]/MODL
[2016-11-15] MEDS ORDERED: ATORVASTATIN CALCIUM 10 MG TAB PO SCH (21:00)
== END 2016-11-15 17:12 | disposition home or self-care (01) | DRG 392 ==
LOC: CED 14:44 → INTOOBSV 19:16 → F3E 21:44 → OBSVTOIN 11-14 09:18
PROVIDERS: ADMIT Surgery; ATTEND Internal Medicine Pulmonary Disease
DX: K52.9 Noninfective gastroenteritis and colitis, unspecified (principal); I10 Essential (primary) hypertension; E03.9 Hypothyroidism, unspecified; E78.5 Hyperlipidemia, unspecified; Z96.659 Presence of unspecified artificial knee joint; Z86.14 Personal history of Methicillin resistant Staphylococcus aureus infection; I49.5 Sick sinus syndrome; Z95.0 Presence of cardiac pacemaker
CPT/HCPCS: 74177-PO; 80053-PO; 81003-PO; 81015-PO; 85025-PO; 85610-PO; 85730-PO; 96361-PO; 96365-PO; G0378; G0463-PO; J1170; J1335; J1956; J2405; Q9967

== ENCOUNTER → 2016-12-17 | Outpatient (CLI) | payer OTHER, MEDICARE | LOC: BHFA 09:15 | PROVIDERS: ATTEND Internal Medicine Cardiovascular Disease | DX: I25.10 Atherosclerotic heart disease of native coronary artery without angina pectoris (principal); R01.1 Cardiac murmur, unspecified; I10 Essential (primary) hypertension ==

== ENCOUNTER → 2016-12-27 | Outpatient (CLI) | payer OTHER, MEDICARE | LOC: BMCIMAGING 16:21 | PROVIDERS: ATTEND Internal Medicine | DX: M51.34 Other intervertebral disc degeneration, thoracic region (principal); M41.86 Other forms of scoliosis, lumbar region ==

== ENCOUNTER → 2017-04-19 | Outpatient (CLI) | payer OTHER, MEDICARE | LOC: FIMAGING 12:09 | PROVIDERS: ATTEND Internal Medicine | DX: Z12.31 Encounter for screening mammogram for malignant neoplasm of breast (principal) | CPT/HCPCS: G0202 ==

== ENCOUNTER 2017-12-17 12:23 | Emergency (ER) | payer OTHER, MEDICARE ==
--- NOTE | 2017-12-17 14:54 | EDPHY ---
H & P Stated Complaint: L knee poss infection --hx mrsa -staph- Time Seen by Provider: 12/17/17 14:24 HPI/ROS: CHIEF COMPLAINT: Left knee drainage HISTORY OF PRESENT ILLNESS: 82-year-old female s/p left TKR presents with drainage from the left knee. She has a history of septic prepatellar bursitis in March 04. Dx MSSA. She was seen in an outside hospital and admitted for IV antibiotics. Since then, she has continued to have a pinpoint area of skin opening over this area. A few days ago, she began to have drainage from this site, associated with erythema adjacent to the area. No pain with range of motion of the left knee. REVIEW OF SYSTEMS: complete 10 point ROS negative except at noted in the HPI - Personal History Tetanus Vaccine Date: 2010 - Medical/Surgical History Hx Asthma: No Hx Chronic Respiratory Disease: No Hx Diabetes: No Hx Cardiac Disease: No Hx Renal Disease: No Hx Cirrhosis: No Hx Alcoholism: No Hx HIV/AIDS: No Hx Splenectomy or Spleen Trauma: No Other PMH: HTN, hypothyroid, pacemaker. 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, MRSA - Social History Smoking Status: Never smoked - Physical Exam Exam: General Appearance: Alert, pleasant Eyes: Pupils equal and round, no conjunctival pallor or injection ENT, Mouth: Mucous membranes moist Neck: Normal inspection Respiratory: Lungs are clear to auscultation Cardiovascular: Regular rate and rhythm Gastrointestinal: Abdomen is soft and nontender Neurological: A&O, nonfocal, normal gait Skin: Warm and dry Extremities: left knee-3 x 3 cm area of erythema just below the left knee, able to express a small amount of purulent drainage, no pain with range of motion Psychiatric: Mood and affect normal Constitutional: Initial Vital Signs Temperature (C) 37.0 C 12/17/17 12:35 Heart Rate 81 12/17/17 12:35 Respiratory Rate 16 12/17/17 12:35 Blood Pressure 144/89 H 12/17/17 12:35 O2 Sat (%) 97 12/17/17 12:35 O2 Delivery Mode Room Air Allergies/Adverse Reactions: RODGER Inhibitors Allergy (Verified 11/13/16 15:18) amoxicillin [Amoxicillin] Allergy (Verified 11/13/16 15:18) iodine Allergy (Verified 11/13/16 15:18) Home Medications: Medication Instructions Recorded Levothyroxine [Synthroid 75 mcg 75 mcg PO DAILY 03/03/14 (*)] Olmesartan Medoxomil [Benicar 20 40 mg PO DAILY@12 06/03/16 mg (*)] DULoxetine [Cymbalta] 20 mg PO BID 11/13/16 Latanoprost 0.005% [Xalatan 0.005% 1 drops EACHEYE HS 11/13/16 (*)] Simvastatin [Zocor] 20 mg PO HS 11/13/16 Acetaminophen [Tylenol 325mg (*)] 650 mg PO Q4 PRN #100 tab 11/15/16 Hydrocodone/Acetaminophen [[place] 1 - 2 tab PO Q4H PRN #14 tab 11/15/16 5/325 (*)] Ondansetron HCl [Zofran] 4 mg PO Q4H PRN #12 tablet 11/15/16 levOFLOXACIN [Levaquin] 500 mg PO DAILY #7 tablet 11/15/16 metroNIDAZOLE [Flagyl 500 mg (*)] 500 mg PO BID #14 tab 11/15/16 Cephalexin [Keflex (*)] 500 mg PO TID #30 cap 12/17/17 Medical Decision Making ED Course/Re-evaluation: FADIA reviewed from 02/2017. Wound culture sent. Dr. Orlin Ornelas consulted. I will place the patient on Keflex and she will follow up in the office tomorrow. Departure - Departure Disposition: Home, Routine, Self-Care Clinical Impression: Cellulitis Qualifiers: Site of cellulitis: extremity Site of cellulitis of extremity: lower extremity Laterality: left Qualified Code(s): L03.116 - Cellulitis of left lower limb Condition: Good Instructions: Cellulitis (ED) Referrals: Gunjan Cruz MD [Primary Care Provider] - As per Instructions Orlin Ornelas MD [Medical Doctor] - As per Instructions (You have an appointment with Dr. Ornelas at 3pm tomorrow.) Prescriptions: Cephalexin [Keflex (*)] 500 mg PO TID #30 cap
[2017-12-17] MEDS ORDERED: CEPHALEXIN 500 MG CAP PO ONE (15:00)
[2017-12-17 15:32] VITALS: BP 133/85
== END 2017-12-17 15:30 | disposition home or self-care (01) ==
DX: L03.116 Cellulitis of left lower limb (principal); I10 Essential (primary) hypertension; Z95.0 Presence of cardiac pacemaker

== ENCOUNTER → 2018-05-05 | Outpatient (CLI) | payer OTHER, MEDICARE | LOC: FIMAGING 10:37 | PROVIDERS: ATTEND Internal Medicine | DX: Z12.31 Encounter for screening mammogram for malignant neoplasm of breast (principal) ==